=== PATIENT | male | born 1975 | race Asian ===

== ENCOUNTER 2022-03-31 09:42 | Day surgery (SDC) | payer MEDICAID ==
[~2022-03-31] VITALS: Ht 188 cm; Wt 95.3 kg
[2022-03-31] MEDS ORDERED: METOCLOPRAMIDE HCL 10 MG/2 ML VIAL IVP PRN (12:30)
[2022-03-31] MEDS ORDERED: MEPERIDINE HCL/PF 25 MG/ML DISP.SYRIN IVP PRN (12:30)
[2022-03-31] MEDS ORDERED: HYDROmorphone 1 MG/ML INJ. CARTRIDGE IVP PRN ×2 (12:30)
[2022-03-31] MEDS ORDERED: LR 1,000 ML IV SCH (12:30)
[2022-03-31] MEDS ORDERED: MIDAZOLAM HCL 2 MG/2 ML VIAL (VERSED) IVP PRN (12:30)
[2022-03-31] MEDS ORDERED: LABETALOL 100 MG/ 20ML VIAL IVP PRN (12:30)
[2022-03-31] MEDS ORDERED: hydrALAZINE HCL 20 MG/ML VIAL IVP PRN (12:30)
[2022-03-31] MEDS ORDERED: fentaNYL CITRATE/PF 100 MCG/2 ML AMP ONE (12:54)
[2022-03-31] MEDS ORDERED: MIDAZOLAM HCL 5 MG/ML VIAL (VERSED) IV ONE (12:54)
[2022-03-31] MEDS ORDERED: PROPOFOL 200MG/ 20ML VIAL (DIPRIVAN) IV ONE (12:54)
[2022-03-31] MEDS ORDERED: DEXAMETHASONE SOD PHOSPHATE 4 MG/ML VIAL ONE (12:54)
[2022-03-31] MEDS ORDERED: LIDOCAINE 2%, 20 ML MDV ONE (12:54)
[2022-03-31] MEDS ORDERED: LR 1,000 ML IV.SOLN IV ONE (12:54)
[2022-03-31] MEDS ORDERED: ONDANSETRON HCL 4 MG/2 ML VIAL ONE (12:54)
[2022-03-31] MEDS ORDERED: DESFLURANE 15 MIN GAS INH ONE (12:54)
[2022-03-31] MEDS ORDERED: ROCURONIUM BROMIDE 10 MG/ML (ZEMURON) ONE (12:54)
[2022-03-31] MEDS ORDERED: NS IRRIG SOLN 1000 ML IR ONE (12:54)
[2022-03-31] MEDS ORDERED: METOPROLOL TARTRATE 5 MG/5 ML VIAL ONE (12:54)
[2022-03-31] MEDS ORDERED: SUGAMMADEX SODIUM 200 MG/2 ML VIAL IV ONE (12:54)
[2022-03-31] MEDS ORDERED: MEPERIDINE HCL/PF 25 MG/ML DISP.SYRIN ONE (12:58)
[2022-03-31] MEDS ORDERED: HYDROmorphone 1 MG/ML INJ. CARTRIDGE ONE (12:58)
[2022-03-31 16:28] VITALS: BP_SYST 130
== END 2022-03-31 15:08 | disposition home or self-care (01) ==
LOC: SDS 09:42 → SMU 09:43 → SDS 15:08
PROVIDERS: ATTEND Otolaryngology
DX: S02.2XXA Fracture of nasal bones, initial encounter for closed fracture (principal); E78.00 Pure hypercholesterolemia, unspecified; E11.49 Type 2 diabetes mellitus with other diabetic neurological complication; X58.XXXA Exposure to other specified factors, initial encounter; Y93.89 Activity, other specified; Y92.89 Other specified places as the place of occurrence of the external cause; Y99.8 Other external cause status; Z20.822 Contact with and (suspected) exposure to COVID-19
CPT/HCPCS: 87081; 36415 ×2; 21320; 82962; 87426; U0003; J3490 ×2; J1100; J2001; J2250; J3465; J2405; J2704; J3010; J1170; J2175; J7120